=== PATIENT | male | born 1935 | race Two or more races ===

== ENCOUNTER 2022-04-30 11:26 | Emergency (ER) | payer OTHER, MEDICAID ==
[~2022-04-30] VITALS: Ht 165.1 cm; Wt 79.5 kg
[2022-04-30] MEDS ORDERED: HYDROmorphone HCL 2 MG/ML VL/or syr IM ONE (14:00)
[2022-04-30 19:06] VITALS: BP 150/44
== END 2022-04-30 19:57 | disposition short-term general hospital (02) ==
LOC: EDBD 11:26 → ER 11:26
DX: S56.421A Laceration of extensor muscle, fascia and tendon of right index finger at forearm level, initial encounter (principal); Z20.822 Contact with and (suspected) exposure to COVID-19; X58.XXXA Exposure to other specified factors, initial encounter; Y93.89 Activity, other specified; Y92.89 Other specified places as the place of occurrence of the external cause; Y99.8 Other external cause status
CPT/HCPCS: 36415; 73130; 87426; 96372; 99285; J1170